=== PATIENT | male | born 1955 | race Caucasian/White ===

== ENCOUNTER 2021-11-19 08:40 | Emergency (ER) | payer SELFPAY ==
[2021-11-19 09:00] VITALS: BP 140/104; PULSE 82; RESP 18; TEMP 37.2; O2SAT 97; BMI 23.9
--- NOTE | 2021-11-19 09:13 | ED_ITS ---
HPI - General Adult General Time Seen by Provider: 09:14 Date Seen: 11/19/21 Chief complaint: Unspecified Complaint, Adult Stated complaint: Covid Pos, wanting antibodies Time Seen by Provider: 11/19/21 09:04 Source: patient and RN notes reviewed Mode of arrival: ambulatory Limitations: no limitations History of Present Illness HPI narrative: Patient is a 66-year-old male coming and with 2 positive home COVID test this morning. He states he started feeling flu markus last night. He has had a mild cough, very mild sore throat. No nasal symptoms, no nausea or vomiting, no diarrhea. He has not lost taste or smell. He is interested in treatment for COVID. He lives between [place] and [facility] and is currently visiting. He was not planning on leaving until sometime next week. He is not completely sure where he picked this up but suspects probably the flight or airport. He is not short of breath, no difficulty breathing. Related Data Home Medications Medication Instructions Recorded Confirmed simvastatin 10 mg tablet 10 mg PO DAILY 11/19/21 11/19/21 Previous Rx's Medication Instructions Recorded nirmatrelvir 300 mg (150 mg See Rx Instructions PO .COMPLEX 11/19/21 x2)-ritonavir 100 mg tablet,dose #30 ea pack(EUA) (Paxlovid) Allergies Allergy/AdvReac Type Severity Reaction Status Date / Time No Known Drug Allergies Allergy Verified 11/19/21 08:58 Review of Systems Status of ROS: Reports: 6 or more systems reviewed and unremarkable except as noted in History and below [facility] Medical History (Updated 11/19/21 @ 10:34 by Astrid Camara MD) Hyperlipidemia Exam Const: Vital Signs, click to edit/add: Vital Signs - 24 hr 11/19/21 09:00 Temperature 99.0 F Pulse Rate [Left P ulse Oximeter] 82 Respiratory Rate 18 Blood Pressure [Le ft Upper Arm] 140/104 H Pulse Oximetry 97 Oxygen Delivery Me thod Room Air Documenting provider has reviewed patient's vital signs: yes Common normals: no apparent distress, oriented x3, no limitations, healthy appearing and alert General appearance: cooperative, comfortable and well kempt Nutritional appearance: thin HENMT: Common normals: normocephalic, head/scalp atraumatic, hearing grossly n ormal bilaterally and external ears normal Head and scalp: normocephalic and atraumatic External ear: external ears normal Eye: Common normals: PERRL, EOMs intact bilaterally, conjunctivae normal and no scleral icterus Conjunctiva: conjunctiva(e) normal Pupil: PERRL Neck & C-Spine: Common normals: full ROM, no lymphadenopathy, supple, no meningeal signs, no JVD and thyroid normal Thyroid: thyroid normal Resp: Common normals: normal respiratory effort, no retractions, no use of accessory muscles and clear to auscultation bilaterally Auscultation: clear to auscultation bilaterally Cardio: Common normals: no JVD, regular rate, regular rhythm, S1 normal heart sound, S2 normal heart sound, no gallops, no clicks and no murmurs Rate: regular rate Rhythm: regular rhythm Heart sounds: S1 normal and S2 normal Neuro: Common normals: oriented x3 Sensorium/orientation: alert Meningeal signs: no meningeal signs Psych: Appearance: well kempt Course Course Hospital Course: Reviewed with patient indications for treatment for outpatient COVID. Reviewed the difference between outpatient versus inpatient treatment. What I can offer him is a prescription for Paxlovid if his kidney function should allow him to take this. He understands we have to have his kidney function. He would be interested in taking this treatment. Reviewed with him that I am not aware of any successful platform for monoclonal antibodies when I have attempted to try to get patient its these recently. We do not have outpatient monoclonal antibody treatment available here. Remdesivir is a possibility which I have not reviewed with him should he not be able to take Paxlovid. I have reviewed with him if he does take this, he will need to go off his cholesterol medicine for the duration of oral treatment of COVID. He states he takes no other supplements or [id number] medicines besides his simvastatin. Reevaluation(s) Reevaluation #1: Reviewed with patient that he was normal kidney function. Reiterated that he will stop his simvastatin while he is on the medicine for COVID. Reviewed signs and symptoms for return as far as COVID illness. Time: 10:31 Vital Signs Vital signs: Initial Vital Signs Temperature 99.0 F 11/19/21 09:00 Temperature Source Temporal Artery Scan 11/19/21 09:00 Pulse Rate 82 11/19/21 09:00 Respiratory Rate 18 08/20/22 09:00 Blood Pressure 140/104 H 11/19/21 09:00 Blood Pressure Mean 116 11/19/21 09:00 Blood Pressure Position Sitting 11/19/21 09:00 Pulse Oximetry 97 11/19/21 09:00 Oxygen Delivery Method 11/19/21 09:00 Vital Signs Temperature 99.0 F 11/19/21 09:00 Pulse Rate 82 11/19/21 09:00 Respiratory Rate 18 11/19/21 09:00 Blood Pressure 140/104 H 11/19/21 09:00 Pulse Oximetry 97 11/19/21 09:00 Oxygen Delivery Method 11/19/21 09:00 Temperature 99.0 F 11/19/21 09:00 Pulse Rate 82 11/19/21 09:00 Respiratory Rate 18 11/19/21 09:00 Blood Pressure 140/104 H 11/19/21 09:00 Pulse Oximetry 97 11/19/21 09:00 Oxygen Delivery Method 11/19/21 09:00 Medical Decision Making Lab Data Lab results reviewed: Yes I reviewed the patient's lab results Labs: Lab Results 11/19/21 Range/Units 09:40 Sodium 139 (135-149) mmol/L Potassium 4.5 (3.6-5.1) mmol/L Chloride 103 (96-114) mmol/L Carbon Dioxide 28 (20-32) mmol/L BUN 19 (7-30) mg/dL Creatinine 1.1 (0.5-1.5) mg/dL Estimated Creat Clear 74.46 Estimated GFR 75 ml/min Glucose 92 (60-115) mg/dL Calcium 8.8 (8.4-10.6) mg/dL Critical Care Time Critical Care Time Critical Care Time: No Discharge Plan Discharge Clinical Impression: COVID-19 Patient Disposition: Home, Self-Care Condition: Stable Instructions: COVID-19 (Coronavirus Disease 2019) (ED), COVID-19: Slow the Coronavirus Spread (ED) Additional Instructions: Stop your simvastatin while you are on the Paxlovid. Initiate Paxlovid for COVID. If you are having significant nausea, vomiting or diarrhea from the Paxlovid use, may need to stop it. Otherwise encourage you to ambulate every hour while awake to help keep lungs aerating. Should you develop difficulty breathing, shortness of breath, significant chest pain or other concerns with COVID-19, please seek re-evaluation. Activity Level: Activity as Tolerated Prescriptions: New Paxlovid (EUA) 300 mg (150 mg x 2)-100 mg tablets,dose pack See Rx Instructions .ROUTE .COMPLEX Qty: 30 0RF Rx Instructions: take TWO 150 mg tablets of nirmatrelvir with ONE 100 mg tablet of ritonavir twice daily for 5 days stop the simvastatin while on this medication, can resume when done No Action simvastatin 10 mg tablet 10 mg PO DAILY Stand Alone Forms: [employer] Info Instructions
[2021-11-19 10:18] LABS: Chloride* 103 mmol/L (96-114); Potassium* 4.5 mmol/L (3.6-5.1); Sodium* 139 mmol/L (135-149)
[2021-11-19 10:21] LABS: Carbon Dioxide* 28 mmol/L (20-32); Creatinine* 1.1 mg/dL (0.5-1.5); Est. Creatinine Clearance* 74.46; Estimated Glomerular Filt Rate 75 ml/min
[2021-11-19 10:22] LABS: Blood Urea Nitrogen* 19 mg/dL (7-30); Calcium* 8.8 mg/dL (8.4-10.6); Glucose* 92 mg/dL (60-115)
== END 2021-11-19 10:50 | disposition home or self-care (01) ==
PROVIDERS: Emergency Provider Family Medicine
DX: U07.1 COVID-19 (principal)
CPT/HCPCS: 36415; 80048; 99283